=== PATIENT | male | born 1960 | race Caucasian/White ===

== ENCOUNTER 2021-08-05 19:25 | Emergency (ER) | payer SELFPAY ==
[~2021-08-05] VITALS: Ht 162.6 cm; Wt 63.5 kg
[2021-08-05 19:25] VITALS: BP 157/93
[2021-08-05 20:15] LABS: BASOPHILS % (AUTO) 0.3 % (0.0-2.0); HEMOGLOBIN 8.8 g/dL (12.0-18.0); LYMPHOCYTES # (AUTO) 0.5 K/uL (2.0-11.5); LYMPHOCYTES % (AUTO) 5.8 % (20.5-51.1); MEAN CORPUSCULAR HEMOGLOBIN 23 pg (27-31); MEAN CORPUSCULAR HGB CONC 32 g/dL (33-37); MEAN CORPUSCULAR VOLUME 71.7 fL (80-94); MONOCYTES # (AUTO) 0.5 K/uL (0.8-1.0); NEUTROPHILS % (AUTO) 87.9 % (42.2-75.2); PLATELET COUNT (AUTO) 104 K/uL (140-450); RED BLOOD CELL COUNT(AUTO) 3.91 MIL/uL (4.20-6.10); RED CELL DISTRIBUTION WIDTH 23.4 % (11.6-13.7); WHITE BLOOD COUNT (AUTO) 9.1 K/uL (4.8-10.8)
[2021-08-05 20:31] LABS: POTASSIUM 3.2 mmol/L (3.5-5.1)
[2021-08-05 20:32] LABS: ANION GAP 14.1 (8-16); CARBON DIOXIDE 23.1 mmol/L (21-32)
[2021-08-05 20:33] LABS: CREATININE 0.7 mg/dL (0.6-1.3)
[2021-08-05] MEDS ORDERED: POTASSIUM CHLORIDE 10 MEQ TABER PO ONE (20:50)
[2021-08-05 21:29] LABS: BARBITURATE, URINE NEGATIVE ng/ml (NEG <=200)
[2021-08-05 21:30] VITALS: BP 155/92
[2021-08-05 21:30] LABS: BENZODIAZEPINE, URINE NEGATIVE ng/mL (NEG <=200); CANNABINOID, URINE NEGATIVE ng/mL (NEG <=50); COCAINE, URINE NEGATIVE ng/mL (NEG <=300); OPIATE, URINE NEGATIVE ng/mL (NEG <=2000); PHENCYCLIDINE SCREEN,URINE NEGATIVE ng/mL (NEG <=25)
== END 2021-08-05 21:30 | disposition home or self-care (01) ==
LOC: MED 19:25
DX: F10.129 Alcohol abuse with intoxication, unspecified (principal); R32 Unspecified urinary incontinence
CPT/HCPCS: 36415; 70450; 71045; 80048; 80305; 84484; 85025; 93005; 99285; G0482